=== PATIENT | female | born 1940 | race Caucasian/White ===

== ENCOUNTER 2020-01-08 14:53 | Emergency (ER) | payer MEDICARE ==
[2020-01-08 14:59] VITALS: TEMP 98.1
[2020-01-08] MEDS ORDERED: DIPH,PERTUS(ACELL)TETVAC-LF 0.5 ML VIAL IM ONE (15:14)
[2020-01-08] MEDS ORDERED: TOPICAL SKIN ADHESIVE 1 EACH AMP TOPICAL ONE (15:14)
--- NOTE | 2020-01-08 15:17 | ED ---
General Adult HPI - General Chief complaint: Fall Stated complaint: Fall, R hand & head injury Time Seen by Provider: 01/08/20 15:07 Source: patient, RN notes reviewed, old records reviewed Mode of arrival: ambulatory Limitations: no limitations - History of Present Illness Initial comments: 79-year-old female presents status post trip and fall. Patient had fallen on some uneven concrete, landing on her breasts and striking her forehead and upper lip. She did fracture her left central incisor as well. No loss consciousness. No anticoagulation. No neck pain. No other extremity injury or trauma to the chest or abdomen. Patient went to urgent care and was sent to the emergency department for evaluation. - Related Data Allergies Allergy/AdvReac Type Severity Reaction Status Date / Time No Known Allergies Allergy Verified 01/08/20 14:55 Review of Systems ROS Statement: Those systems with pertinent positive or pertinent negative responses have been documented in the HPI. ROS Other: All systems not noted in ROS Statement are negative. Past Medical History Past Medical History: Hypertension History of Any Multi-Drug Resistant Organisms: None Reported Past Surgical History: Hysterectomy Past Psychological History: No Psychological Hx Reported Smoking Status: Never smoker Past Alcohol Use History: None Reported Past Drug Use History: None Reported General Exam Limitations: no limitations General appearance: alert, in no apparent distress Head exam: Present: normocephalic, other (Right frontal hematoma and abrasion) Eye exam: Present: normal appearance, PERRL, other ENT exam: Present: other (Fractured left central incisor, 1.5 cm superficial laceration to the left upper lip) Neck exam: Present: normal inspection, tenderness Respiratory exam: Present: normal lung sounds bilaterally. Absent: respiratory distress, wheezes Cardiovascular Exam: Present: regular rate, normal rhythm GI/Abdominal exam: Present: soft. Absent: distended, tenderness, guarding Extremities exam: Present: other (Left hand, there is some abrasion and soft tissue swelling at the wrist, palmar surface.. Right hand, large skin avulsion on the dorsal hand) Neurological exam: Present: alert, oriented X3, CN II-XII intact, normal gait. Absent: motor sensory deficit Psychiatric exam: Present: normal affect, normal mood Skin exam: Present: warm, dry. Absent: cyanosis, diaphoretic Course Vital Signs 01/08/20 14:56 Temperature 98.1 F Pulse Rate 109 H Respiratory 17 Rate Blood Pressure 181/84 O2 Sat by Pulse 97 Oximetry Procedures - Laceration Laceration #1 Consent Obtained: verbal consent Indication: laceration Site: face Size (cm): 2 Description: linear Depth: simple, single layer Pre-repair: wound explored, irrigated extensively, deep structures intact Size of Sutures: other Technique: other (Skin adhesive) Patient Tolerated Procedure: well - Orthopedic Splinting/Casting Injury #1 Side: right Upper Extremity Injury Location: wrist Upper Extremity Immobilizer: volar splint Medical Decision Making - Medical Decision Making 79-year-old female with fall, lip laceration, skin tear to the right dorsal hand. She had complaints of bilateral wrist pain, x-rays were performed which were negative for fracture. Head CT as well as facial bones and cervical spine performed, negative for traumatic injury. Lip laceration is repaired with skin adhesive, this does not involve the vermilion border, it is between 1.5 and 2 cm in length, partial-thickness. Skin tear is irrigated and repaired with Steri- Strips. Patient is placed in a volar splint that she does have some pain in the wrist, there is no fracture identified on x-ray. Patient will follow-up with her primary care physician. Disposition Clinical Impression: Fall, Closed head injury, Lip laceration, Wrist contusion Disposition: HOME SELF-CARE Condition: Good Instructions (If sedation given, give patient instructions): Laceration (ED), Concussion (ED) Is patient prescribed a controlled substance at d/c from ED?: No Referrals: Jose Royal MD [Primary Care Provider] - 1-2 days Time of Disposition: 17:01
--- NOTE | 2020-01-08 16:13 | XR ---
EXAMINATION TYPE: XR wrist complete BILATERAL DATE OF EXAM: 01/08/2020 COMPARISON: None HISTORY: Bilateral wrist pain following fall on concrete TECHNIQUE: 4 view each bilateral wrist FINDINGS: Right wrist: Soft tissue swelling is over the right wrist especially the dorsum of the wris t. Note is made of degenerative joint changes at the first carpal metacarpal junction. Some milder joint space changes are present within the left wrist. No acute displaced fractures are identified. Follow-up exams to be recommended 7-10 days from acute trauma for continued pain. Nuclear medicine pierce ne scan be recommended for pain at the anatomic snuff box. IMPRESSION: 1. No acute osseous abnormality bilateral wrists. 2. Soft tissue swelling dorsum of right wrist. 3. Degenerative joint changes
--- NOTE | 2020-01-08 16:19 | CT ---
EXAMINATION TYPE: CT brain neris wo con DATE OF EXAM: 01/08/2020 COMPARISON: None HISTORY: Fall today. Frontal injury and injury to upper lip. CT DLP: 1006.8 mGycm, Automated exposure control for dose reduction was used. CONTRAST: Patient injected with 0 mL of Isovue 300. CT of the brain is performed utilizing 3 mm thick sections through the posterior fossa and 3 mm thick sections through the remaining calvarium. Study is performed within 24 hours of arrival to the hospital. No abnormal hyperdensity is present to suggest an acute intracranial hemorrhage. No mass lesion is evident. No acute infarcts are evident. There is prominence of the extra-axial spaces in the frontal regions. Ventricles and sulci are prominent for the patient age. Some soft tissue swelling is over the right frontal and nasal regions. Paranasal sinuses and mastoid air cells within the [id number]-uw-egcy are clear. IMPRESSIONS: 1. Normal CT brain. CT cervical spine. COMPARISON: None CT of the cervical spine is performed in the axial plane at 2 mm thick sections. Reconstructed image s in the coronal, and sagittal plane are reviewed on the computer. No acute fractures are evident. Vertebral body alignment is straightened. There is loss of disc height C5-6. Minimal endplate spurring is present. No AP spinal canal stenosis is present. Vertebral body heights are preserved. No spinal canal stenosis is evident. No significant neural foraminal stenosis is evident. IMPRESSIONS: 1. No acute osseous abnormality cervical spine. 2. Degenerative disc changes C5-6
--- NOTE | 2020-01-08 16:22 | CT ---
EXAMINATION TYPE: CT facial bones wo con DATE OF EXAM: 01/08/2020 COMPARISON: CT brain and cervical spine same date HISTORY: Fall today. Frontal injury and injury to upper lip. CT DLP: 1006.8 mGycm CONTRAST: 0 mL of Isovue 300 The paranasal sinuses are examined in the axial plane at 2 mm thick sections. Reconstructed images i n the coronal plane were obtained. There is dental amalgam scatter artifact Mucosal thickening or retention cysts are within the maxillary sinuses. There is an air-fluid level w ithin the left maxillary sinus. No acute fractures are identified. Correlate for acute sinusitis. The ethmoid air cells are clear. The sphenoid sinuses are clear. The frontal sinuses are clear. The septum is evaluated. There is septal deviation to the left. The ostiomeatal units are patent. IMPRESSIONS: 1. No acute osseous abnormality facial bones. 2. Air-fluid level within the left maxillary sinus. Correlate for acute sinusitis
[2020-01-08] MEDS ORDERED: BACITRACIN OINT 1 EACH PACKET TOPICAL ONE (16:35)
[2020-01-08 17:25] VITALS: BP 145/84; PULSE 82; RESP 18
== END 2020-01-08 17:27 | disposition home or self-care (01) ==
LOC: EC 14:53
DX: S01.511A Laceration without foreign body of lip, initial encounter (principal); S60.211A Contusion of right wrist, initial encounter; S09.90XA Unspecified injury of head, initial encounter; W01.198A Fall on same level from slipping, tripping and stumbling with subsequent striking against other object, initial encounter; Y92.89 Other specified places as the place of occurrence of the external cause
CPT/HCPCS: 12011; 29125; 70450; 70486; 72125; 90471; 90715; 99284

== ENCOUNTER 2024-06-29 14:53 | Emergency (ER) | payer MEDICARE ==
--- NOTE | 2024-06-29 16:09 | ED ---
General Adult HPI - General Source: patient, RN notes reviewed, old records reviewed Mode of arrival: ambulatory Limitations: no limitations <Jasmeet Pradhan - Last Filed: 06/29/24 16:05> <Marty Wellington - Last Filed: 06/30/24 08:01> - General Chief complaint: Shortness of Breath Stated complaint: pnemonia Time Seen by Provider: 06/29/24 15:32 - History of Present Illness Initial comments: Patient is an 84-year-old female who presents emergency department after being sent from urgent care for dyspnea. Patient has had 5 days of shortness of breath. Occasional cough as well. Occasional productive sputum with possible small pieces of blood in it. Denies any fevers or chills. No cardiac history. History of hypertension hyperlipidemia. Denies any nausea or vomiting or diarrhea. No known sick contacts. Denies any recent like to travel. Denies lower extremity edema. Denies orthopnea. Denies PND. No other acute complaints. Chest x-ray at urgent care unremarkable was sent here for further workup. Currently patient was hypoxic down to upper 80%'s at urgent care as well. (Jasmeet Pradhan) - Related Data Allergies Allergy/AdvReac Type Severity Reaction Status Date / Time cephalexin AdvReac Unknown Verified 06/29/24 15:06 sulfamethoxazole AdvReac Unknown Verified 06/29/24 15:06 [From Sulfamethoxazole-Trimethoprim] trimethoprim AdvReac Unknown Verified 06/29/24 15:06 [From Sulfamethoxazole-Trimethoprim] Review of Systems ROS Other: All systems not noted in ROS Statement are negative. <Jasmeet Pradhan - Last Filed: 06/29/24 16:05> ROS Other: All systems not noted in ROS Statement are negative. <Marty Wellington - Last Filed: 06/30/24 08:01> ROS Statement: Those systems with pertinent positive or pertinent negative responses have been documented in the HPI. Review of Systems: CONST: Denies fever EYES: Denies blurry vision ENT: Denies nasal congestion C/V: Denies Chest pain RESP: Endorses shortness of breath GI: Denies abdominal pain : Denies dysuria SKIN: Denies rash. MSK: Denies joint pain. NEURO: Denies headache (Jasmeet Pradhan) Past Medical History Past Medical History: Hyperlipidemia, Hypertension History of Any Multi-Drug Resistant Organisms: None Reported Past Surgical History: Appendectomy, Hysterectomy, Tonsillectomy Past Psychological History: No Psychological Hx Reported Smoking Status: Never smoker Past Alcohol Use History: None Reported Past Drug Use History: None Reported <Jasmeet Pradhan - Last Filed: 06/29/24 16:05> General Exam Limitations: no limitations <Jasmeet Pradhan - Last Filed: 06/29/24 16:05> - General Exam Comments Initial Comments: General: Appears in no acute distress. HEAD: Normal with no signs of head trauma. EYES: PERRLA, EOMI, conjunctiva normal, no discharge. ENT: Hearing grossly intact, normal oropharynx. RESPIRATORY: Relatively clear breath sounds bilaterally. No significant coarse breath sounds. No significant rhonchi or wheezes. Intermittently hypoxic on room air, but seems to be at rest mostly 92 to 93%. C/V: Tachycardic with regular rhythm. S1 and S2 auscultated, no edema, peripheral pulses 2+ and intact throughout ABD: Abd is soft, nontender, nondistended EXT: Normal range of motion, no obvious deformity SKIN: No rashes or lesions observed on exposed skin. NEURO: Alert and oriented x 4. (Jasmeet Pradhan) Course Vital Signs 06/29/24 06/29/24 06/29/24 15:01 16:08 16:30 Temperature 97.8 F Pulse Rate 125 H 91 96 Respiratory 22 Rate Blood Pressure 137/73 O2 Sat by Pulse 90 L 92 L Oximetry 06/29/24 06/29/24 16:50 18:35 Temperature 98.2 F Pulse Rate 94 93 Respiratory 17 Rate Blood Pressure 147/73 O2 Sat by Pulse 95 Oximetry Medical Decision Making - EKG Data -: EKG Interpreted by Me <Jasmeet Pradhan - Last Filed: 06/29/24 16:05> - Lab Data Result diagrams: 06/29/24 15:55 06/29/24 15:55 <Marty Wellington - Last Filed: 06/30/24 08:01> - Medical Decision Making Was pt. sent in by a medical professional or institution (, PA, B[employer] GRINDER, urgent care, hospital, or jail...) When possible be specific @ -Sent from urgent care for further workup. Did you speak to anyone other than the patient for history (EMS, parent, family, police, friend...)? What history was obtained from this source @ -No Did you review nursing and triage notes (agree or disagree)? Why? @ -I reviewed and agree with nursing and triage notes Were old charts reviewed (outside hosp., previous admission, EMS record, old EKG, old radiological studies, urgent care reports/EKG's, jail records)? Report findings @ -No old charts were reviewed Differential Diagnosis (chest pain, altered mental status, abdominal pain women, abdominal pain men, vaginal bleeding, weakness, fever, dyspnea, syncope, headache, dizziness, GI bleed, back pain, seizure, CVA, palpatations, mental health, musculoskeletal)? @ -Differential Dyspnea: Coronary syndrome, arrhythmia, tamponade, asthma, COPD, pulmonary embolism, pneumonia, pneumothorax, pulmonary effusion, anaphylaxis, diabetic ketoacidosis, flailed chest, pulmonary contusion, diaphragmatic rupture, anemia, neuromuscular, this is not meant to be an all-inclusive list. EKG interpreted by me (3pts min.). @ -As above X-rays interpreted by me (1pt min.). @ -Pending CT interpreted by me (1pt min.). @ -None done U/S interpreted by me (1pt. min.). @ -None done What testing was considered but not performed or refused? (CT, X-rays, U/S, labs)? Why? @ -None What meds were considered but not given or refused? Why? @ -None Did you discuss the management of the patient with other professionals (professionals i.e. , PA, [employer] GRINDER, lab, RT, psych nurse, social welfare administrator, indoor landscaper/gardener, teacher, commercial loan officer, case resource manager)? Give summary @ -No Was smoking cessation discussed for >3mins.? @ -No Was critical care preformed (if so, how long)? @ -No Were there social determinants of health that impacted care today? How? (Homelessness, low income, unemployed, alcoholism, drug addiction, transportation, low edu. Level, literacy, decrease access to med. care, snf, rehab)? @ -No Was there de-escalation of care discussed even if they declined (Discuss DNR or withdrawal of care, Hospice)? DNR status @ -No What co-morbidities impacted this encounter? (DM, HTN, Smoking, COPD, CAD, Cancer, CVA, ARF, Chemo, Hep., AIDS, mental health diagnosis, sleep apnea, morbid obesity)? @ -None Was patient admitted / discharged? Hospital course, mention meds given and route, prescriptions, significant lab abnormalities, going to OR and other pertinent info. @ -Patient presents with tachycardia, hypoxia, dyspnea for the last 4 to 5 days. May be infectious but cannot definitively rule out cardiopulmonary etiology at this time. We will obtain cardiopulmonary workup. Patient was in agreement this plan. We will trial a breathing treatment to see if patient has any improvement in symptoms. Exam is relatively unremarkable except for the tachycardia as well as the mild hypoxia on room air. EKG shows no signs of acute ischemia. Workup is pending at this time. Patient signed out to Dr. Wellington pending results of workup. Undiagnosed new problem with uncertain prognosis? @ -No Drug Therapy requiring intensive monitoring for toxicity (Heparin, Nitro, I nsulin, Cardizem)? @ -No Were any procedures done? @ -No (Jasmeet Pradhan) I reevaluated the patient after the studies were finished. I had discussion with the patient about the findings. The patient is satting at 94 to 95% on room air during the discussion. She feels well and wants to go home. We discussed appropriate further care and follow-up as well as return parameters. She does not at this point want to stay to have the second lactic acid after the fluids and she does not appear to be septic nor requiring further testing at this point. Was patient admitted / discharged? Hospital course, mention meds given and route, prescriptions, significant lab abnormalities, going to OR and other pertinent info. @ -[Received this patient pending study results. When they returned I reviewed with the patient and she is feeling better and would like to go home. Discussed appropriate further care and follow-up as well as return parameters Undiagnosed new problem with uncertain prognosis? @ -[No] Drug Therapy requiring intensive monitoring for toxicity (Heparin, Nitro, Insulin, Cardizem)? @ -[No] Were any procedures done? @ -[No] Diagnosis/symptom? @ -[Acute influenza A Acute, or Chronic, or Acute on Chronic? @ -Acute Uncomplicated (without systemic symptoms) or Complicated (systemic symptoms)? @ -[Uncomplicated Side effects of treatment? @ -[No] Exacerbation, Progression, or Severe Exacerbation? @ -[No] Poses a threat to life or bodily function? How? (Chest pain, [place], [place], pneumonia, PE, COPD, DKA, ARF, appy, cholecystitis, CVA, Diverticulitis, Homicidal, Suicidal, threat to staff... and all critical care pts) @ -[No] All treatments are based on ideal body weight as in ED triage (Marty Wellington) - Lab Data Lab Results 06/29/24 06/29/24 06/29/24 Range/Units 15:55 15:55 15:55 WBC 6.6 (3.8-10.6) k/uL RBC 4.65 (3.80-5.40) m/uL Hgb 13.8 (11.4-16.0) gm/dL Hct 42.3 (34.0-46.0) % MCV 91.0 (80.0-100.0) fL MCH 29.6 (25.0-35.0) pg MCHC 32.5 (31.0-37.0) g/dL RDW 13.1 (11.5-15.5) % Plt Count 166 (150-450) k/uL MPV 7.3 Neutrophils % 81 % Lymphocytes % 11 % Monocytes % 7 % Eosinophils % 0 % Basophils % 0 % Neutrophils # 5.3 (1.3-7.7) k/uL Lymphocytes # 0.7 L (1.0-4.8) k/uL Monocytes # 0.5 (0-1.0) k/uL Eosinophils # 0.0 (0-0.7) k/uL Basophils # 0.0 (0-0.2) k/uL PT 10.1 (10.0-12.5) sec INR 0.9 (<1.2) APTT 24.6 (22.0-30.0) sec D-Dimer 0.35 (<0.60) mg/L FEU Sodium 135 L (137-145) mmol/L Potassium 4.1 (3.5-5.1) mmol/L Chloride 100 (98-107) mmol/L Carbon Dioxide 22 (22-30) mmol/L Anion Gap 13 mmol/L BUN 17 (7-17) mg/dL Creatinine 0.89 (0.52-1.04) mg/dL Est GFR (CKD-EPI)AfAm 68 (>60 ml/min/1.73 sqM) Est GFR (CKD-EPI)NonAf 59 (>60 ml/min/1.73 sqM) Glucose 94 (74-99) mg/dL Lactic Ac Sepsis Rflx Plasma Lactic Acid Jamil (0.7-2.0) mmol/L Calcium 9.7 (8.4-10.2) mg/dL Magnesium 2.0 (1.6-2.3) mg/dL Total Bilirubin 0.7 (0.2-1.3) mg/dL AST 36 (14-36) U/L ALT 19 (4-34) U/L Alkaline Phosphatase 42 (38-126) U/L Troponin I (0.000-0.034) ng/mL NT-Pro-B Natriuret Pep 128 pg/mL Total Protein 7.7 (6.3-8.2) g/dL Albumin 4.7 (3.5-5.0) g/dL Influenza Type A (PCR) (Not Detectd) Influenza Type B (PCR) (Not Detectd) RSV (PCR) (Not Detectd) SARS-CoV-2 (PCR) (Not Detectd) 06/29/24 06/29/24 06/29/24 Range/Units 15:55 15:55 15:55 WBC (3.8-10.6) k/uL RBC (3.80-5.40) m/uL Hgb (11.4-16.0) gm/dL Hct (34.0-46.0) % MCV (80.0-100.0) fL MCH (25.0-35.0) pg MCHC (31.0-37.0) g/dL RDW (11.5-15.5) % Plt Count (150-450) k/uL MPV Neutrophils % % Lymphocytes % % Monocytes % % Eosinophils % % Basophils % % Neutrophils # (1.3-7.7) k/uL Lymphocytes # (1.0-4.8) k/uL Monocytes # (0-1.0) k/uL Eosinophils # (0-0.7) k/uL Basophils # (0-0.2) k/uL PT (10.0-12.5) sec INR (<1.2) APTT (22.0-30.0) sec D-Dimer (<0.60) mg/L FEU Sodium (137-145) mmol/L Potassium (3.5-5.1) mmol/L Chloride (98-107) mmol/L Carbon Dioxide (22-30) mmol/L Anion Gap mmol/L BUN (7-17) mg/dL Creatinine (0.52-1.04) mg/dL Est GFR (CKD-EPI)AfAm (>60 ml/min/1.73 sqM) Est GFR (CKD-EPI)NonAf (>60 ml/min/1.73 sqM) Glucose (74-99) mg/dL Lactic Ac Sepsis Rflx Plasma Lactic Acid Jamil 2.6 H* (0.7-2.0) mmol/L Calcium (8.4-10.2) mg/dL Magnesium (1.6-2.3) mg/dL Total Bilirubin (0.2-1.3) mg/dL AST (14-36) U/L ALT (4-34) U/L Alkaline Phosphatase (38-126) U/L Troponin I <0.012 (0.000-0.034) ng/mL NT-Pro-B Natriuret Pep pg/mL Total Protein (6.3-8.2) g/dL Albumin (3.5-5.0) g/dL Influenza Type A (PCR) Detected A (Not Detectd) Influenza Type B (PCR) Not Detected (Not Detectd) RSV (PCR) Not Detected (Not Detectd) SARS-CoV-2 (PCR) Not Detected (Not Detectd) 06/29/24 Range/Units 17:13 WBC (3.8-10.6) k/uL RBC (3.80-5.40) m/uL Hgb (11.4-16.0) gm/dL Hct (34.0-46.0) % MCV (80.0-100.0) fL MCH (25.0-35.0) pg MCHC (31.0-37.0) g/dL RDW (11.5-15.5) % Plt Count (150-450) k/uL MPV Neutrophils % % Lymphocytes % % Monocytes % % Eosinophils % % Basophils % % Neutrophils # (1.3-7.7) k/uL Lymphocytes # (1.0-4.8) k/uL Monocytes # (0-1.0) k/uL Eosinophils # (0-0.7) k/uL Basophils # (0-0.2) k/uL PT (10.0-12.5) sec INR (<1.2) APTT (22.0-30.0) sec D-Dimer (<0.60) mg/L FEU Sodium (137-145) mmol/L Potassium (3.5-5.1) mmol/L Chloride (98-107) mmol/L Carbon Dioxide (22-30) mmol/L Anion Gap mmol/L BUN (7-17) mg/dL Creatinine (0.52-1.04) mg/dL Est GFR (CKD-EPI)AfAm (>60 ml/min/1.73 sqM) Est GFR (CKD-EPI)NonAf (>60 ml/min/1.73 sqM) Glucose (74-99) mg/dL Lactic Ac Sepsis Rflx Y Plasma Lactic Acid Jamil (0.7-2.0) mmol/L Calcium (8.4-10.2) mg/dL Magnesium (1.6-2.3) mg/dL Total Bilirubin (0.2-1.3) mg/dL AST (14-36) U/L ALT (4-34) U/L Alkaline Phosphatase (38-126) U/L Troponin I (0.000-0.034) ng/mL NT-Pro-B Natriuret Pep pg/mL Total Protein (6.3-8.2) g/dL Albumin (3.5-5.0) g/dL Influenza Type A (PCR) (Not Detectd) Influenza Type B (PCR) (Not Detectd) RSV (PCR) (Not Detectd) SARS-CoV-2 (PCR) (Not Detectd) - EKG Data EKG Comments: 12-lead Electrocardiogram Interpretation Note EKG was reviewed and interpreted by myself. 12-lead ECG performed at 1529 is interpreted by me as revealing normal sinus rhythm at a rate of 98 beats per minute. Lindsay is normal. SC interval is 136 ms, QRS duration is 122 ms, QTc is 416 ms.. Patient has a right bundle branch block. There were no ST or T wave abnormalities to suggest myocardial ischemia or injury. R wave progression across the precordium was satisfactory. By my interpretation this EKG is non- diagnostic for acute ischemia. (Jasmeet Pradhan) Disposition <Jasmeet Pradhan - Last Filed: 06/29/24 16:05> Is patient prescribed a controlled substance at d/c from ED?: No <Marty Wellington - Last Filed: 06/30/24 08:01> Clinical Impression: Influenza A Disposition: HOME SELF-CARE Condition: Good Instructions (If sedation given, give patient instructions): Influenza (DC) Referrals: Jose Royal MD [STAFF PHYSICIAN] - 1-2 days
[2024-06-29 16:22] LABS: Basophils % (A) 0 %; Eosinophils % (A) 0 %; HCT 42.3 % (34.0-46.0); HGB 13.8 gm/dL (11.4-16.0); Lymphocytes # (A) 0.7 k/uL (1.0-4.8); Lymphocytes % (A) 11 %; MCH 29.6 pg (25.0-35.0); MCHC 32.5 g/dL (31.0-37.0); Mean Platelet Volume 7.3; Monocytes # (A) 0.5 k/uL (0-1.0); Monocytes % (A) 7 %; Neutrophils # (A) 5.3 k/uL (1.3-7.7); Neutrophils % (A) 81 %; Platelet Count 166 k/uL (150-450); RBC 4.65 m/uL (3.80-5.40); RDW 13.1 % (11.5-15.5); WBC 6.6 k/uL (3.8-10.6)
[2024-06-29] MEDS: IPRATROPIUM-ALBUTEROL 3 ML NEB INHALATION STA (16:30)
[2024-06-29 16:39] LABS: ALT 19 U/L (4-34); African American GFR (CKD) 68 (>60 ml/min/1.73 sqM); Anion Gap 13 mmol/L; Blood Urea Nitrogen 17 mg/dL (7-17); Calcium 9.7 mg/dL (8.4-10.2); Carbon Dioxide 22 mmol/L (22-30); Chloride 100 mmol/L (98-107); Glucose 94 mg/dL (74-99); Non-African American GFR(CKD) 59 (>60 ml/min/1.73 sqM); Sodium 135 mmol/L (137-145)
[2024-06-29 16:41] LABS: INR 0.9 (<1.2); Partial Thromboplastin Time 24.6 sec (22.0-30.0); Prothrombin Time 10.1 sec (10.0-12.5)
[2024-06-29 16:47] LABS: NT-Pro-B-Type Natriuretic Pept 128 pg/mL
[2024-06-29 16:57] LABS: Influenza A Detected (Not Detectd); Influenza B Not Detected (Not Detectd); RSV Not Detected (Not Detectd)
[2024-06-29 17:10] LABS: AST 36 U/L (14-36); Albumin 4.7 g/dL (3.5-5.0); Potassium 4.1 mmol/L (3.5-5.1); Total Bilirubin 0.7 mg/dL (0.2-1.3); Total Protein 7.7 g/dL (6.3-8.2)
[2024-06-29 17:11] LABS: Alkaline Phosphatase 42 U/L (38-126)
--- NOTE | 2024-06-29 17:14 | XR ---
EXAMINATION TYPE: XR chest 2V DATE OF EXAM: 06/29/2024 5:11 PM COMPARISON: None. CLINICAL INDICATION: Female, 84 years old with history of difficulty breathing; [facility] TECHNIQUE: XR chest 2V Frontal and lateral views of the chest. FINDINGS: Lungs/Pleura: There is no evidence of pleural effusion, focal consolidation, or pneumothorax. Pulmonary vascularity: Unremarkable. Heart/mediastinum: Cardiomediastinal silhouette is unremarkable. Musculoskeletal: No acute osseous pathology. Other findings: None IMPRESSION: No acute cardiopulmonary disease/process. [facility], , 06/29/2024 5:12 PM
[2024-06-29 18:37] VITALS: BP 147/73; PULSE 93; RESP 17; TEMP 98.2
[2024-06-29] MEDS: SODIUM CHLORIDE 0.9% 500 ML 500 ML IV STA (18:37)
== END 2024-06-29 18:43 | disposition home or self-care (01) ==
LOC: EC 14:53
DX: J10.1 Influenza due to other identified influenza virus with other respiratory manifestations (principal); I45.10 Unspecified right bundle-branch block
CPT/HCPCS: 36415; 71046; 80053; 83605; 83735; 83880; 84484; 85025; 85379; 85610; 85730; 87636; 93005; 94640; 99285